=== PATIENT | female | born 2000 | race Caucasian/White ===

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

== ENCOUNTER 2019-06-30 18:31 | Emergency (ER) | payer OTHER ==
--- NOTE | 2019-06-30 19:12 | ED ---
Upper Extremity Pain - HPI Summary HPI Summary: The patient is a 18-year-old female arriving via ambulance to [facility] emergency department with a chief complaint of left upper extremity pain status post a traumatic fall tonight. She reports that she was climbing a chain-link fence and fell backwards from about five feet high. She landed on her left side. She is now experiencing pain in the left humerus and elbow. There is no numbness in the arm. She denies any head injury or loss of consciousness with the fall. Arm pain is currently rated 7/10 in severity. EMS placed the patient in a C-collar, with pain rated 3/10. Movement of the neck or arm aggravates the pain. Past medical history is significant for Counselor disease. Nonsmoker, occasional alcohol use, no substance use. Medications reviewed. Allergies noted. Home Medications Medication Instructions Recorded Confirmed Type Sertraline* [Zoloft*] 100 mg PO DAILY 07/09/18 07/09/18 History - History of Current Complaint Chief Complaint: EDExtremityUpper Stated Complaint: FALL/ L ARM PAIN PER EMS Time Seen by Provider: 06/30/19 18:59 Hx Obtained From: Patient Mechanism Of Injury: Fall From Height Of: - 5 feet Onset/Duration: Started Minutes Ago, Still Present Timing: Constant Severity Initially: Moderate Severity Currently: Moderate Pain Location: Collar, Arm - left, Elbow - left Character: Aching Aggravating Factor(s): Movement Alleviating Factor(s): Nothing Associated Signs & Symptoms: Positive: Neck Pain. Negative: Other - head injury , LOC - Allergies/Home Medications Allergies/Adverse Reactions: Allergies Allergy/AdvReac Type Severity Reaction Status Date / Time No Known Allergies Allergy Verified 07/09/18 13:41 Home Medications: Home Medications Sertraline* [Zoloft*] 100 mg PO DAILY 07/09/18 [History Confirmed 07/09/18] PMH/Surg Hx/FS Hx/Imm Hx Endocrine/Hematology History: Denies: Hx Diabetes Respiratory History: Reports: Other Respiratory Problems/Disorders - bronchitis Denies: Hx Asthma GI History: Reports: Other GI Disorders - Gilbert's disease - Surgical History Surgical History: None Surgery Procedure, Year, and Place: none Infectious Disease History: No Infectious Disease History: Denies: Traveled Outside the [place] in Last 30 Days - Family History Known Family History: Negative: Diabetes - Social History Alcohol Use: Occasionally Hx Substance Use: No Substance Use Type: Reports: None Hx Tobacco Use: No Smoking Status (MU): Never Smoked Tobacco Review of Systems Positive: Other - left humerus and elbow pain, neck pain Neurological/Mental Status: Other - Negative: head injury, LOC Negative: Numbness All Other Systems Reviewed And Are Negative: Yes Physical Exam - Summary Physical Exam Summary: Appearance: The patient is well-nourished in no acute distress and in no acute pain. Skin: The skin is warm and dry, and skin color reflects adequate perfusion. HEENT: The head is normocephalic and atraumatic. The pupils are equal and reactive. The conjunctivae are clear and without drainage. Nares are patent and without drainage. Mouth reveals moist mucous membranes, and the throat is without erythema and exudate. The external ears are intact. The ear canals are patent and without drainage. The tympanic membranes are intact. Neck: The neck is supple with full range of motion and non-tender. There are no carotid bruits. There is no neck vein distension. Respiratory: Chest is non-tender. Lungs are clear to auscultation and breath sounds are symmetrical and equal. Cardiovascular: Heart is regular rate and rhythm. There is no murmur or rub auscultated. There is no peripheral edema and pulses are symmetrical and equal. Abdomen: The abdomen is soft and non-tender. There are normal bowel sounds heard in all four quadrants and there is no organomegaly palpated. Musculoskeletal: There is no back tenderness noted. There is tenderness with rotation, supination, and pronation as well as flexion and extension of the left elbow. Extremities are otherwise non-tender with full range of motion. There is good capillary refill. There is no peripheral edema or calf tenderness elicited. Neurological: Patient is alert and oriented to person, place and time. The patient has symmetrical motor strength in all four extremities. Cranial nerves are grossly intact. Deep tendon reflexes are symmetrical and equal in all four extremities. Psychiatric: The patient has an appropriate affect and does not exhibit any anxiety or depression. Triage Information Reviewed: Yes Vital Signs On Initial Exam: Initial Vitals Temp Pulse Resp BP Pulse Ox 98.7 F 84 16 144/95 100 06/30/19 18:36 06/30/19 18:36 06/30/19 18:36 06/30/19 18:36 06/30/19 18:36 Vital Signs Reviewed: Yes Procedures - Sedation Patient Received Moderate/Deep Sedation with Procedure: No Diagnostics - Vital Signs Vital Signs Temp Pulse Resp BP Pulse Ox 06/30/19 19:00 116 100 06/30/19 18:42 93 100 06/30/19 18:36 98.7 F 107 16 144/95 100 - Laboratory Lab Statement: Any lab studies that have been ordered have been reviewed, and results considered in the medical decision making process. - Radiology Left Elbow XR Radiology Interpretation Completed By: ED Physician Summary of Radiographic Findings: No evidence for fracture. Anterior fat pad sign indicating likely soft tissue swelling. This imaging scan was reviewed and interpreted by Dr. Mtz. Pending official read. Cervical Spine XR Radiology Interpretation Completed By: ED Physician Summary of Radiographic Findings: No evidence for fracture. Loss of lordosis. This imaging scan was reviewed and interpreted by Dr. Mtz. Pending official read. Re-Evaluation - Re-Evaluation First Eval Re-Evaluation Time: 20:05 Comment: We discussed results thus far. Patient experiencing neck pain and requesting cervical spine XR. Second Eval Re-Evaluation Time: 20:50 Comment: We discussed results and discharge plan. Course/Dx - Course Course Of Treatment: Ms. Barnes brought into video demonstrating her falling about 4 feet onto her back. She denies any head injury or loss of consciousness. She had some mild pain in her neck and demonstrated by moving it all around. Her major complaint was left elbow pain. Her neck was nontender along the midline but her elbow was tender to range of motion. Distal neurovascular was completely intact. X-ray of her cervical spine did show a little bit of loss of lordosis with no other finding. Left elbow film shows an anterior fat pad sign although I cannot see a fracture. I recommended immobilization and follow-up as well as ibuprofen. - Diagnoses Provider Diagnoses: Elbow injury Discharge ED - Sign-Out/Discharge Documenting (check all that apply): Patient Departure - Patient will be discharged home. - Discharge Plan Condition: Stable Disposition: HOME Patient Education Materials: Elbow Sprain (ED) Referrals: [facility] [Outside] - 3 Days Additional Instructions: Follow up with your primary care provider in 2-3 days. Return to the emergency department for any new or worsening symptoms. - Billing Disposition and Condition Condition: STABLE Disposition: Home - Attestation Statements Document Initiated by Scribe: Yes Documenting Scribe: Norma Jones Provider For Whom Ofelia is Documenting (Include Credential): Dr. Deni Mtz MD Scribe Attestation: I, sally Villaibed for Dr. Deni Mtz MD on 06/30/19 at 2137. Scribe Documentation Reviewed: Yes Provider Attestation: The documentation as recorded by the Norma melvin accurately reflects the service I personally performed and the decisions made by me, Dr. Deni Mtz MD Status of Scribe Document: Viewed
[2019-06-30] MEDS ORDERED: Gabapentin CAP(*) 100 MG PO ONE (20:43)
[2019-06-30 20:59] VITALS: BP 153/92
--- NOTE | 2019-07-01 08:06 | ED ---
Imaging and Labs Follow Up Follow Up Type: Imaging Imaging Result: Patient Name: DESTINY TEJADA Medical Record#: [id number] Ordering Physician: Deni Mtz MD Acct.#: [id number] : 2000 Age: 18 Sex: F Location: EMERGENCY DEPARTMENT Exam Date: 06/30/192013 ADM Status: [facility] ER Order Information: SP CERVICAL 4+VWS Accession Number: [id number] CPT: 38082 INDICATION: Trauma, neck pain. COMPARISON: There are no relevant prior studies available for comparison. TECHNIQUE: AP, open-mouth odontoid, oblique and lateral films of the cervical spine were obtained. FINDINGS: C1-T1 are visualized. There is straightening of the cervical spine with loss of the normal cervical lordosis. There is very mild hyperkyphosis at the C5-C6 level. The vertebra otherwise in normal alignment. No prevertebral soft tissue swelling or fracture is seen. Disc spaces appear maintained. The results of this exam were called to the emergency Department [facility]. IMPRESSION: 1. NO EVIDENCE FOR FRACTURE. 2. STRAIGHTENING OF THE CERVICAL SPINE WITH MILD HYPERKYPHOSIS AT THE C5-C6 LEVEL. IF THE PATIENT HAS POSTERIOR MIDLINE POINT TENDERNESS AT THIS LEVEL RECOMMEND FLEXION AND EXTENSION LATERAL FILMS FOR FURTHER EVALUATION TO EXCLUDE A POSTERIOR LIGAMENT. INJURY. R2 Preliminary Imaging Read R2 <Electronically signed by Danny Tapia MD in [place]> 07/01/19 0811 Dictated By: Danny Tapia MD Dictated Date/Time: 07/01/19 0753 Transcribed Date/Time: 07/01/19 075 Copy to: Patient Communication/Plan: Pt. seen in ED by Dr. Mtz last night after falling 4 ft. Per ED note and PE, pt.'s main c/o was elbow pain. Pt. reportedly had no midline cervical tenderness on exam. Radiology was concerned for potential ligamental injury only if pt. had midline tenderness which she did not based on Dr. Mtz's PE. No further workup needed at this time. Provider Diagnoses: Elbow injury
== END 2019-06-30 20:57 | disposition home or self-care (01) ==
LOC: ED 18:31
DX: S59.902A Unspecified injury of left elbow, initial encounter (principal); M54.2 Cervicalgia; W17.89XA Other fall from one level to another, initial encounter; Y92.9 Unspecified place or not applicable; Z79.52 Long term (current) use of systemic steroids
CPT/HCPCS: 72050; 99283; A9270-GY